=== PATIENT | female | born 1985 | race Caucasian/White ===

== ENCOUNTER → 2018-01-03 11:27 | Outpatient (CLI) | payer BC, SELFPAY ==
[2018-01-03 12:24] LABS: Hemoglobin 12.6 g/dl (12.0-15.0); Mean Corp Hgb Conc 32.3 g/gl (32-36); Mean Corpuscular Hgb 29.2 pg (27.0-32.0); Mean Corpuscular Volume 90.5 fL (81-99); Mean Platelet Vol. 9.1 fl (6.2-12.0); Platelet Count 317 K/mm3 (150-450); RBC Distribution Width SD 40.1 fl (35.1-43.9); Red Blood Count 4.31 M/mm3 (4.2-5.4); White Blood Count 4.7 K/mm3 (4.4-11.0)
[2018-01-03 12:40] LABS: Scan Indicated on CBC? Y/N NO
[2018-01-03 12:50] LABS: Hemoglobin A1c 5.3 % (4.2-6.3)
[2018-01-03 12:53] LABS: Estradiol 54.5 pg/mL; Free T3 2.8 pg/mL (2.18-3.98); T4 Free Direct 0.74 ng/dL (0.76-1.46); Thyroid Stim Hormone (TSH) 1.15 uIU/mL (0.358-3.74)
[2018-01-04 10:38] LABS: Progesterone Level 0.33 ng/mL (See Comment)
[2018-01-07 13:56] LABS: HPV Reflexed? NOT INDICATED
== END ==
PROVIDERS: Visit Provider Obstetrics & Gynecology
DX: R53.83 Other fatigue (principal); Z12.4 Encounter for screening for malignant neoplasm of cervix
CPT/HCPCS: 82533; 82627; 82670; 83036; 84144; 84403; 84439; 84443; 84481; 85027; 88175; 82626; G0145

== ENCOUNTER → 2018-03-23 08:59 | Outpatient (CLI) | payer BC, SELFPAY ==
--- NOTE | 2018-03-23 09:01 | US_ITS ---
STUDY: ABDOMINAL ULTRASOUND - RIGHT UPPER QUADRANT REASON FOR VISIT: Female, 32 years old. Epigastric pain TECHNIQUE: Ultrasound evaluation of the right upper quadrant was performed with real-time and static fernandez-scale imaging. TECHNICAL QUALITY: Adequate. COMPARISON: None. FINDINGS: Liver: The liver measures 17 cm. There is normal echogenicity of the liver. There is mild intrahepatic ductal dilatation. There is hepatic color flow. The direction of portal flow is hepatopetal. There is a subtle echogenic structure within the liver which may represent artifact versus a possible small hemangioma measuring 4.7 mm. Gallbladder: Normal distended gallbladder. The gallbladder wall measures 3 mm. There is a negative sonographic Evangelista's sign. There is no pericholecystic fluid. There are multiple echogenic structures within the gallbladder, consistent with multiple gallstones. These may measure up to 1.7 cm. There is a large stone in the neck of the gallbladder measuring 9.4 mm. Common Bile Duct (C.B.D.): The common bile duct measures 5 mm. Just at the edge of the common duct there is a suggestion of possible stone in or near the common duct. Pancreas: Normal size of the head, body and tail of the pancreas. There is normal echogenicity of the pancreas. There is no demonstrated pancreatic mass or cyst. Right Kidney: Normal size of the right kidney. The right kidney measures 10.2 x 5.2 x 4.8 cm. Normal renal cortex. The right cortex measures cm. There is no demonstrated renal mass or cyst. There is no right hydronephrosis. US/Abdomen Limited IMPRESSION: There are numerous gallstones present. There is wall thickening and a distended common duct for patient's age measuring 5 mm. There are stones close to the common duct and in the neck of the gallbladder. Although the sonographic Evangelista sign is described as negative findings are suggestive of at least chronic cholecystitis. Recommend consideration for short-term interval follow-up study such as HIDA scan. The kidneys of normal size but shows vertical thinning. Recommend correlation with renal laboratory values. Possible 4.7 mm hemangioma within the liver versus artifact. Electronically Signed: Jaki Ni MD at 12:21 EDT Tel , Service support ,
== END ==
PROVIDERS: Family Provider Family Medicine; PCP Family Medicine; Visit Provider Family Medicine
DX: R10.11 Right upper quadrant pain (principal)
CPT/HCPCS: 76705

== ENCOUNTER → 2018-03-27 09:59 | Outpatient (CLI) | payer BC, SELFPAY ==
[2018-03-27 10:45] LABS: AST(SGOT) 16 U/L (15-37); Alanine Aminotransfer ALT/SGPT 23 U/L (13-56); Albumin, Serum 4.1 g/dL (3.2-5.0); Alkaline Phosphatase 75 U/L (45-117); Bilirubin, Direct 0.09 mg/dL (0.00-0.30); Globulin 3.6 g/dL (2.2-4.2); Lipase 174 U/L (73-393); Protein, Total 7.7 g/dL (6.4-8.2)
== END ==
PROVIDERS: Family Provider Family Medicine; PCP Family Medicine; Visit Provider Surgery
DX: K80.20 Calculus of gallbladder without cholecystitis without obstruction (principal)
CPT/HCPCS: 36415; 80076; 83690

== ENCOUNTER 2018-08-02 07:17 | Day surgery (SDC) | payer BC, SELFPAY ==
[2018-08-02] VITALS (8 sets, daily range): BP systolic 120–151; BP diastolic 65–112; PULSE 45–60; RESP 16; TEMP 36.2–36.9; O2SAT 95–100; BMI 29.9
--- NOTE | 2018-08-02 | GALL_PTH ---
PATIENT: DARRICK MONTERROSO [place] [facility] [id number] AGE/SX: 33/F ROOM: RE08/02/[address]: Dr. Fareed Cali MD : [id number] BED: DIS: 08/02/2018 SPEC #: [id number] RECD: 08/02/18 13:59 STATUS: MAURO ODALYS #: [id number] ANTONINA: 08/02/18 00:[address]: Fareed Cali DEPT: SURGICAL PATHOLOGY RECD BY: [place] ENTERED: 08/02/18 13:59 SP TYPE: [place] SALAZAR DR: Dr. Heydi Galicia MD Tissues: Gallbladder, NOS Procedures: Surgery Specimen Level III HEADER OPERATION: Laparoscopic cholecystectomy with IOC PRE-OP DIAGNOSIS: Calculus of gallbladder with chronic cholecystitis without obstruction TISSUE SUBMITTED: Gallbladder MICROSCOPIC DIAGNOSIS Gallbladder: Chronic cholecystitis and cholelithiasis. A benign pericystic lymph node with reactive changes. SJ:urvashi 08/05/18 MICROSCOPIC DESCRIPTION Slides are reviewed. GROSS DESCRIPTION Received is one container labeled with the patient's name and designated gallbladder. The specimen consists of a gallbladder measuring 8.5 cm in length and up to 2.5 cm in diameter. The external surface is pink-peter, smooth and glistening for the most part. Focally it is granular, hemorrhagic and contains cautery artifact. The gallbladder contains green-yellow mucoid bile and multiple multifaceted greenish stones measuring in aggregate 4 x 3.5 x 2 cm and 0.5 to 1.5 cm in greatest dimension. The mucosa is bile-stained and without any mass lesions. The gallbladder wall measures up to 0.2 cm in thickness. Also present close to the cystic duct is an ovoid piece of peter soft tissue consistent with a possible lymph node measuring 0.5 cm in greatest dimension. [employer] Developer sections from the gallbladder wall, cystic duct and entire possible lymph node are submitted in one cassette. / JAH:urvashi 08/02/18 TC:3 CPT: 59313
--- NOTE | 2018-08-02 07:32 | EKG12_ITS ---
Test Reason : PRE-OP Blood Pressure : / mmHG Vent. Rate : 058 BPM Atrial Rate : 058 BPM P-R Int : 142 ms QRS Dur : 096 ms QT Int : 406 ms P-R-T Axes : 052 045 051 degrees QTc Int : 398 ms Sinus bradycardia Otherwise normal ECG No previous ECGs available Confirmed by KEYONNA MENON, AMY ([id number]), video editor SAMUEL PERRY ([id number]) on 08/09/2018 3:14:19 PM Referred By: Fareed Cali Confirmed By:AMY NEWBY MD
[2018-08-02 07:46] LABS: Internal QC Validated? YES +Cl - CLEAR BKGD; Pregnancy, Urine Negative Negative
[2018-08-02 07:56] LABS: Hematocrit 39.1 % (37-47); Hemoglobin 13.3 g/dl (12.0-15.0); Mean Corpuscular Hgb 30.4 pg (27.0-32.0); Mean Corpuscular Volume 89.5 fL (81-99); Mean Platelet Vol. 8.9 fl (6.2-12.0); Platelet Count 344 K/mm3 (150-450); RBC Distribution Width SD 38.8 fl (35.1-43.9); Red Blood Count 4.37 M/mm3 (4.2-5.4); White Blood Count 5.1 K/mm3 (4.4-11.0)
[2018-08-02 07:57] LABS: Scan Indicated on CBC? Y/N NO
[2018-08-02 08:08] LABS: Anion Gap 9 (5-15); BUN 12 mg/dL (7-18); Calcium,Total 8.7 mg/dL (8.5-10.1); Chloride 106 mmol/L (98-107); EST Glomerular Filtration Rate 68 mL/min (>60); Est Glom Filt Rate - Afr Amer 82 mL/min (>60); Estimated Creatinine Clearance 66.19 ml/min; Glucose 94 mg/dL (74-106); Potassium 3.8 mmol/L (3.5-5.1); Sodium Level 140 mmol/L (136-145)
--- NOTE | 2018-08-02 09:12 | DCINST_ITS ---
Discharge Diet: Light diet - advance as tolerated - if you have questions about your diet instructions, please talk to you doctor. Discharge Activity: May Not Drive - for 1 week or while taking narcotic pain medicine. May shower in (days): 1 Lifting Restrictions: 10 pounds Call your doctor if your incision/area has: Continuous Slow Oozing, Sudden Increased Bleeding, Increased Pain/ Swelling, Increased Redness, Foul Smelling Discharge Call your doctor if you observe: Fever of 101 or Higher Suture Line Care: Avoid Pulling/Pushing, Avoid Pinching/Bending Additional Dressing/Incision Instructions:: Change or remove dressing in 4 days. Leave steri-strips in place for 1 week. Allergies/Adverse Reactions: Allergies No Known Allergies Allergy (Verified 08/01/18 10:33) Medications to take at Discharge omeprazole 40 mg capsule,delayed release 40 mg PO QDAY #30 cap 03/27/18 Levonorgestrel [Mirena] 1 ea IY DAILY 07/26/18 Hydrocodone Bitart/Apap 5-325 [[place] 5MG-325MG] 1 tablet PO Q6H PRN PRN 3 Days # 8 tablet 08/02/18 The following prescriptions were given: Hydrocodone Bitart/Apap 5-325 [[place] 5MG-325MG] 1 tablet PO Q6H PRN PRN 3 Days # 8 tablet PRN Reason: Pain Primary Care Physician: Heydi Galicia MD [Primary Care Provider] - Test Results: Test results from this visit will be discussed in further detail at your follow- up appointment, if applicable. Please Follow Up With: Fareed Cali MD - [phone] When: Call to make an appointment to be seen in about 10 days.
--- NOTE | 2018-08-02 09:20 | RAD_ITS ---
STUDY: INTRAOPERATIVE CHOLANGIOGRAM. REASON FOR EXAM: Female, 33 years old. Laparoscopic cholecystectomy. FLUOROSCOPY TIME (if supplied): (0:14) minutes/seconds. Intraoperative cine loop was obtained. TECHNIQUE: An intraoperative cholangiogram was performed by the surgeon. Imaging was submitted. COMPARISON: None. FINDINGS: The intrahepatic biliary ducts are unremarkable. The common bile duct is not dilated. No intraluminal filling defect is seen. There is free flow of contrast into the duodenum. RAD/Cholangiogram/ O R,Initial IMPRESSION: Unremarkable intraoperative cholangiogram. Electronically Signed: Edward Dobson MD at 14:04 EDT Tel [phone], Service support ,
[2018-08-02] MEDS: Cefazolin 2 GM in 0.9% Normal Saline 100 ML IV (09:24)
--- NOTE | 2018-08-02 10:21 | PCM.OPRPT ---
Problem List (1) Cholelithiasis with chronic cholecystitis Status: Acute Report of Operation Date of Procedure: 08/02/18 Pre-Operative Diagnosis: Chronic cholecystitis cholelithiasis Post-Operative Diagnosis: Same Surgery/Procedure Performed:: Laparoscopic cholecystectomy with cholangiography Description of Surgical Findings:: Timeout informed consent was obtained. 33-year-old female was taken out from placement table underwent general endotracheal intubation anesthesia. Ancef 2 g given intravenously preoperatively. The abdomen was sterilely prepped draped. 0.5% Marcaine was used as a local anesthetic. Throughout the procedure total 30 cc was used. Skin sites were pre-anesthetized. A vertical incision was made at the site of the umbilicus. Holding sutures of 0 Vicryl placed. Varies needle inserted. Saline drop test performed. The abdomen was insufflated CO2 to pressure of 10 ventricular pressure. Laquita trocar inserted. 10 lap scope inserted. No evidence any trocar injuries. There is evidence of adhesions of omentum to the infraumbilical midline but the trocar was separate from this. Remainder of the superficial structures appear to be unremarkable. Upon elevating the gallbladder was evidence of a stone within the neck and induration consistent with active chronic inflammation. The mesentery of the gallbladder was incised hemostasis obtained with Hem-o-irais clips carefully and tediously the hepatocystic angle was dissected free the cystic artery was nicely identified Hem-o-irais clip proximally prior to transecting it for the gallbladder peritoneum was secured with Hem-o-irais clips circumferential control was obtained of the cystic duct. A Hem-o-irais clip was placed on the cystic duct and through a 14-gauge Angiocath and cholangiogram catheter was inserted a small incision was made in the cystic duct angiogram secured. Fluoroscopically controlled cholangiograms were obtained demonstrating normal ductal anatomy and free flow into the small bowel. Client Gilbert catheter was removed and 2 large Hem-o-irais clips were placed on the cystic duct stump prior to transecting it. The gallbladder was dissected free from the liver bed. Further hemostasis obtained with Hem-o-irais clips were indicated. Gallbladder was dissected free with electrocautery. Hemostasis nicely intact. The gallbladder was placed in retrieval bag. There is no stones spillage. The right upper quadrant was irrigated and aspirated free of excess fluid. Was noted be nicely hemostatic. The gallbladder was exited the umbilicus slight fascial enlargement was required. The remaining trochars removed under visualization. The abdomen was allowed to deflate of the CO2. The fascia at the umbilicus approximated up to 0 Vicryl figure 8 suture. Skin edges proximate interrupted 4 Monocryl subdermal stitches. Steri-Strips and Telfa and OpSite dressings were applied. Sponge and instrument and needle counts were reported the surgeon be correct. Blood loss was minimal. Specimens gallbladder. Drains none. Blood loss minimal. Fareed Cali M.D., F.A.C.S. Type of Anesthesia:: General Anesthesiologist: Dimas Walter
[2018-08-02] MEDS: Bupivacaine Mpf 0.5% 30 ML VIAL (10:27)
[2018-08-02] MEDS: HYDROcodone Bitartrate/Apap 5/325 Tablet PO (12:29)
== END 2018-08-02 13:00 | disposition home or self-care (01) ==
LOC: SDC 07:21 → AC 07:22
PROVIDERS: Anesthesiology; Family Provider Family Medicine; PCP Family Medicine; Visit Provider Surgery
PROC: (CPT 47610; principal; 2018-08-02 09:00)
DX: K80.10 Calculus of gallbladder with chronic cholecystitis without obstruction (principal)
CPT/HCPCS: 00790; 47563; 36415; 74300; 76000; 80048; 81025; 85027; 88304; 93005; J7120; J2405

== ENCOUNTER → 2019-08-05 11:29 | Outpatient (CLI) | payer BC, SELFPAY ==
[2019-08-05 15:49] LABS: Free T3 2.8 pg/mL (2.18-3.98)
== END ==
PROVIDERS: Family Provider Family Medicine; PCP Family Medicine; Visit Provider Family Medicine
DX: F41.8 Other specified anxiety disorders (principal)
CPT/HCPCS: 36415; 84439; 84443; 84481

== ENCOUNTER → 2019-09-11 09:52 | Outpatient (CLI) | payer BC, SELFPAY ==
[2019-09-15 15:48] LABS: DHEA Sulfate 244.7 ug/dL (84.8-378.0)
[2019-09-15 16:22] LABS: Estrogen, Total, Serum 169 pg/mL (.); Sex Hormone-binding Globulin 34.4 nmol/L (24.6-122.0)
== END ==
PROVIDERS: Family Provider Family Medicine; PCP Family Medicine; Referring Provider Obstetrics & Gynecology; Visit Provider Obstetrics & Gynecology
DX: R68.82 Decreased libido (principal)
CPT/HCPCS: 36415; 82533; 82627; 82672; 84270; 84403; 82626

== ENCOUNTER → 2019-09-19 15:27 | Outpatient (CLI) | payer BC, SELFPAY ==
[2019-09-19 16:48] LABS: Estradiol 40.8 pg/mL
== END ==
PROVIDERS: Family Provider Family Medicine; PCP Family Medicine; Referring Provider Obstetrics & Gynecology; Visit Provider Obstetrics & Gynecology
DX: R68.82 Decreased libido (principal)
CPT/HCPCS: 36415; 82670

== ENCOUNTER → 2020-11-10 16:24 | Outpatient (CLI) | payer BC, SELFPAY ==
[2018-08-02 07:44] VITALS: BMI 29.9
[2020-11-14 03:06] LABS: Chlamydia By Nucleic Acid AMP Negative (Negative)
[2020-11-14 14:45] LABS: Gonococcus By Nucleic Acid AMP Negative (Negative)
[2020-11-16 13:20] LABS: HPV Reflexed? NOT INDICATED
== END ==
PROVIDERS: PCP Family Medicine; Visit Provider Obstetrics & Gynecology
DX: Z12.4 Encounter for screening for malignant neoplasm of cervix (principal); Z11.3 Encounter for screening for infections with a predominantly sexual mode of transmission
CPT/HCPCS: 87491; 87591; 88175; G0145

== ENCOUNTER → 2022-05-11 | Outpatient (CLI) | payer BC, SELFPAY ==
[2022-05-11 12:40] LABS: Absolute Lymphocyte Count 1.89 X10^3/uL (0.83-4.51); Absolute Neutrophil Count 2.3 X10^3/uL (2.0-7.7); Basophil# 0.02 X10^3/uL; Basophil% 0.4 % (0-1); Eosinophil# 0.06 X10^3/uL; Eosinophils% 1.3 % (0-5); Hematocrit 38.3 % (37-47); Hemoglobin 12.5 g/dL (12.0-15.0); Lymphocyte # 1.89 X10^3/ul (0.83-4.51); Lymphocyte % 39.5 % (19-41); Mean Corp Hgb Conc 32.6 g/dL (32-36); Mean Corpuscular Hgb 30.5 pg (27.0-32.0); Mean Corpuscular Volume 93.4 fL (81-99); Mean Platelet Vol. 9.5 fl (6.2-12.0); Monocyte# 0.49 X10^3/uL; Monocyte% 10.2 % (0-10); NRBC Flagged by Analyzer 0 % (0-5); Neutrophil # 2.32 X10^3/uL (2.7-7.7); Neutrophil % 48.4 % (47-70); Platelet Count 341 K/mm3 (150-450); RBC Distribution Width CV 12.1 % (11.6-14.6); RBC Distribution Width SD 41.9 fl (35.1-43.9); White Blood Count 4.8 K/mm3 (4.4-11.0)
[2022-05-11 13:23] LABS: Vitamin B12 340 pg/mL (211-911)
[2022-05-11 13:30] LABS: Thyroid Stim Hormone (TSH) 0.53 uIU/mL (0.358-3.74)
== END | disposition home or self-care (01) ==
PROVIDERS: PCP Family Medicine; Referring Provider Family Medicine; Visit Provider Family Medicine
DX: R53.83 Other fatigue (principal)
CPT/HCPCS: 36415; 82607; 84443; 85025

== ENCOUNTER → 2023-03-22 | Outpatient (CLI) | payer BC, SELFPAY ==
[2023-03-23 15:08] LABS: Endomysial Antibody IgA Negative (Negative); Immunoglobulin A 143 mg/dL (87-352); t-Transglutaminase IgA <2 U/mL (0-3)
== END | disposition home or self-care (01) ==
LOC: BFHLAB 09:57
PROVIDERS: PCP Family Medicine; Referring Provider Family Medicine; Visit Provider Family Medicine
DX: R10.13 Epigastric pain (principal); R63.4 Abnormal weight loss
CPT/HCPCS: 36415; 82784; 83516; 86255

== ENCOUNTER → 2024-06-10 | Outpatient (CLI) | payer BC, SELFPAY ==
[2024-06-10 12:44] LABS: CRP < 2.90 mg/L (0.0-3.0)
[2024-06-10 12:53] LABS: Erythrocyte Sedimentation Rate 1 mm/hr (0-30)
[2024-06-10 12:54] LABS: Absolute Lymphocyte Count 1.68 X10^3/uL (0.83-4.51); Absolute Neutrophil Count 2.7 X10^3/uL (2.0-7.7); Basophil# 0.02 X10^3/uL; Basophil% 0.4 % (0-1); Eosinophil# 0.06 X10^3/uL; Eosinophils% 1.2 % (0-5); Hematocrit 39.7 % (37-47); Hemoglobin 13.3 g/dL (12.0-15.0); Lymphocyte # 1.68 X10^3/ul (0.83-4.51); Mean Corp Hgb Conc 33.5 g/dL (32-36); Mean Corpuscular Hgb 30.5 pg (27.0-32.0); Mean Corpuscular Volume 91.1 fL (81-99); Mean Platelet Vol. 9.1 fl (6.2-12.0); Monocyte# 0.45 X10^3/uL; Monocyte% 9.1 % (0-10); NRBC Flagged by Analyzer 0 % (0-5); Neutrophil # 2.72 X10^3/uL (2.7-7.7); Neutrophil % 55.1 % (47-70); Platelet Count 357 K/mm3 (150-450); RBC Distribution Width CV 11.9 % (11.6-14.6); Red Blood Count 4.36 M/mm3 (4.2-5.4); White Blood Count 4.9 K/mm3 (4.4-11.0)
== END | disposition home or self-care (01) ==
LOC: BFHLAB 10:31
PROVIDERS: PCP Nurse Practitioner Family; Referring Provider Nurse Practitioner Family; Visit Provider Nurse Practitioner Family
DX: R19.7 Diarrhea, unspecified (principal); R14.0 Abdominal distension (gaseous)
CPT/HCPCS: 36415; 85025; 85652; 86140

== ENCOUNTER → 2024-06-11 | Outpatient (CLI) | payer BC, SELFPAY ==
[2024-06-17 21:07] LABS: Calprotectin, Stool 6 ug/g (0-120)
== END | disposition home or self-care (01) ==
LOC: LABSPEC 14:18
PROVIDERS: PCP Nurse Practitioner Family; Referring Provider Nurse Practitioner Family; Visit Provider Nurse Practitioner Family
DX: R19.7 Diarrhea, unspecified (principal); R14.0 Abdominal distension (gaseous)
CPT/HCPCS: 83630; 83993; 87177; 87209; 87493; 87506

== ENCOUNTER → 2024-08-29 | Outpatient (CLI) | payer BC, SELFPAY ==
--- NOTE | 2024-08-29 14:59 | CT_ITS ---
STUDY: CT Abdomen And Pelvis W/ Contrast Injection 08/31/2024 3:26 PM REASON FOR EXAM: Female, 39 years old. Bloating LEFT LOWER QUADRANT PAIN TECHNIQUE: Transaxial images were obtained with oral contrast, and IV Readi-CAT and amp; 100mL Isovue-370 intravenous contrast. Individualized dose optimization techniques were used for this CT. COMPARISON: None FINDINGS: The visualized lung bases are unremarkable. The visualized portions of the heart are within normal limits. Unremarkable liver. There is non-visualization of the gallbladder, which may be secondary to either contraction or a prior cholecystectomy. Unremarkable spleen. Unremarkable pancreas. Unremarkable bilateral adrenal glands. No acute findings of the right kidney. No acute findings of the left kidney. Unremarkable visualized stomach. Unremarkable small intestine. There is wall thickening of the descending and rectosigmoid colon. There is also questionable inflammation around the colon. This can suggest a colitis. This can also suggest incomplete distension of the colon. The appendix is visualized and appears unremarkable. There are no acute findings of the abdominal aorta. Unremarkable inferior vena cava. Subcentimeter mesenteric lymph nodes. Unremarkable urinary bladder. Normal visualized uterus. IUD in place. It is in good position. Unremarkable abdominal wall. Unremarkable osseous structures. CT/Abdomen/Pelvis WITH Contrast IMPRESSION: (NOT LISTED IN ORDER OF SIGNIFICANCE) There are findings suggesting a mild colitis of the descending and rectosigmoid colon. Other findings as above. Electronically Signed: Eleno Ludwig MD at 15:29 EDT ,
[2024-08-29 15:33] LABS: CREATININE FINGERSTICK < 1.0 mg/dL (0.55-1.02); EGFR FINGERSTICK > 60.0000 mL/min (>60)
== END | disposition home or self-care (01) ==
PROVIDERS: PCP Family Medicine; Referring Provider Family Medicine; Visit Provider Family Medicine
DX: R10.32 Left lower quadrant pain (principal)
CPT/HCPCS: 74177; Q9967

== ENCOUNTER 2024-09-13 11:37 | Emergency (ER) | payer BC, SELFPAY ==
[2024-09-13 11:37] VITALS: BP 186/135; PULSE 96; RESP 28; TEMP 36.1; O2SAT 170
--- NOTE | 2024-09-13 12:03 | EX.ED.UPPERE ---
HPI History of Present Illness HPI Narrative: 39-year-old mfere-nesj-llyvahad female using a trimmer helper at home about an hour and a half ago and lacerated the index long and ring fingers of her left hand. Unsure of last tetanus. Denies other complaints. Chief Complaint: Laceration Informant: patient and spouse/S.O. Occured/Mechanism Mechanism/Context: Yes injury Onset/Context/Timing Onset: Today and Hours Context: Sudden Onset Timing: Continuous Quality of Pain: Sharp Current Severity: Moderate Maximum Severity: Moderate Associated Symptoms Associated Symptoms: Negative for Parasthesia, Weakness or Loss of Funtion Narrative Narrative: 39-year-old healthy female left hand laceration right index long ring finger from a trimmer helper about an hour and a half ago. Tetanus will need updated. Tetanus Immunization: Unknown Prior similar symptoms: No Recent Illness/Hospitalization: No PFSH PFSH Medical History GERD (gastroesophageal reflux disease) Colitis Cholelithiasis with chronic cholecystitis Anxiety Home Medications ?Medication ?Instructions ?Recorded ?Last Taken ?Type omeprazole 40 mg capsule,delayed 40 mg PO QDAY #30 caps 03/27/18 08/02/18 06:00 Rx release levonorgestrel 21 mcg/24 hr (up to 1 ea IY DAILY 07/26/18 Unknown History 8 years) 52 mg intrauterine device hydrocodone-acetaminophen 5-325mg 1 tab PO Q6H PRN PRN Pain 3 days 08/02/18 Unknown Rx 5mg-325mg ##8 bupropion HCl 150 mg 24 hr tablet, 150 mg PO QAM 09/03/24 Unknown History extended release famotidine 40 mg tablet 40 mg PO QDAY 09/03/24 Unknown History metoprolol tartrate 25 mg tablet 25 mg PO BID 09/03/24 Unknown History Allergy/AdvReac Type Severity Reaction Status Date / Time No Known Allergies Allergy Verified 09/13/24 11:37 Family History Grandmother Thyroid disorder Hypertension Mother Hypertension Father CVA (cerebral vascular accident) Surgical History History of cholecystectomy History of section History of dilatation and curettage Social History Smoking Status: Never smoker alcohol intake: current substance use type: does not use ROS ROS ED ROS Narrative Denies recent illness. Constitutional Constitutional ED: Denies chills or fever(s) Eyes Eyes: Denies blurry vision ENT ENT ED: Denies ear pain Cardiovascular Cardiovascular: Denies chest pain Respiratory/Chest Respiratory/Chest: Denies cough or dyspnea Gastrointestinal Gastrointestinal: Denies abdominal pain Genitourinary Genitourinary ED: Denies dysuria or hematuria Musculoskeletal Musculoskeletal: Denies back pain Integumentary Denies abscess Neurologic Neurologic: Denies headache(s) Psychiatric Psychiatric: Denies anxiety Endocrine Endocrinology: Denies cold intolerance Hematologic/Lymphatic Hematologic/Lymphatic: Denies easy bleeding Allergic/Immunologic Allergic/Immunologic ED: Denies mouth swelling or tongue swelling EXAM Physical Exam Narrative Exam Narrative: 39-year-old female complaining of pain. Vital signs stable afebrile. Blood pressure elevated due to her hand discomfort. at bedside. H EENT exam unremarkable atraumatic. Neck nontender. Lungs clear. Heart regular rhythm no murmur. Rate about 95. Chest wall ribs nontender. Abdomen soft. Moving all 4 extremities. Neurovascularly intact. Her left hand palmar aspect of the left index, ring and long finger has 4 total lacerations are irregular and jagged that will need to be repaired. She is able to completely extend her hand and completely flex her hand I think her flexor and extensor tendons are intact. She does have touch sensation and cap refill. There is no signs of infection. There is only mild bleeding. There is no gross bony deformity. Const Vital Signs: 09/13/24 11:37 Temperature 97 F L Temperature Source Temporal Pulse Rate 96 Respiratory Rate 28 H Blood Pressure 186/135 H Blood Pressure Mean 152 Pulse Ox 170 Oxygen Delivery Method Room Air Positive well nourished and well developed; Negative for obese, cachectic, contractures or unkempt General Appearance ED: well developed and NAD; Negative for unkempt, cachectic, contractures, cyanotic or diaphoretic Nutritional Appearance: Negative for cachectic or obese HEENT Reports moist mucous membranes normocephalic and atraumatic; Negative for trauma or tenderness Eyes PERRL and EOMs intact bilaterally Neck full ROM and supple General: Negative for tenderness Lymph Lymphatic: Negative for other Chest Wall inspection of chest normal and palpation of chest normal Chest: Negative for other Resp normal respiratory effort and clear to auscultation bilaterally Effort and Inspection: Negative for pain with movement Auscultation: Negative for rales, rhonchi or wheezes Cardio regular rate, regular rhythm, S1 normal heart sound, S2 normal heart sound and no murmurs Rate: Negative for bradycardia or tachycardic Rhythm: Negative for abnormal rhythm GI non-tender, non-distended and no masses Inspection: Negative for abdominal distention Palpation: soft; Negative for tender, guarding or rebound tenderness present Back/Spine no CVA tenderness Extremity normal to inspection and full ROM Extremity Narrative: Except left hand. Palmar aspect left, index left, ring and long finger all have irregular jagged lacerations from a hedge tremor. She has full flexion extension. Sensation appears to be intact. These are all need to be locally anesthetized washed out explored and closed. General Extremety ED: Negative for edema General Extremity: Negative for edema Neuro oriented x3, CN's II-XII intact bilaterally, moves all extremities, no focal motor deficits and no sensory deficits noted Sensorium / Orientation: alert, oriented to person, oriented to place and oriented to time; Negative for orientation impaired, lethargic or stuporous Motor Exam: strength 5/5 throughout Psych mental status grossly normal Appearance: Negative for unkempt Attitude: No agitated Mood & Affect: anxious and tearful; Negative for depressed Skin General Skin Exam: Negative for petechiae Lesions: no lesions Rashes: no rashes Trauma: laceration MDM MDM MDM Narrative Medical decision making narrative: 39-year-old female ngdvk-[id number] multiple lacerations to her left index, left ring and long fingers which are all need to be repaired. X-ray being obtained. Tetanus will be updated. All 3 fingers to be digitally blocked. Cleaned with Shur-Clens wash and irrigated with saline and closed. History & Record Review Discussion w/independent historian: Patient and Family Procedures Lacerations Left ring finger laceration repair:: Length: 1 in Depth: Sub Q Shape: Linear Prep: Shure-Clejoel Laceration repair: Digital block, Irrigated, Lidocaine, Nerve block and Skin sutures Number of Sutures/Nuris: 3 Suture Information: Ethilon and 4-0 Comment: Left ring finger laceration. Approximately an inch. Digital block. Cleaned with Shur-Clens washed with saline and irrigated. Explored. Closed using 3 simple interrupted 4-0 Ethilon sutures. Proper hemostasis wound closure was obtained. Left long finger laceration repair:: Length: 1 in Depth: Sub Q Shape: Linear Prep: Shure-Clens Laceration repair: Digital block, Irrigated, Lidocaine, Nerve block and Skin sutures Number of Sutures/[place]: 4 Suture Information: Ethilon, Simple and 4-0 Comment: Left long finger laceration about 1 inch. Digital block. Cleaned with Shur-Clens. Washed and irrigated with saline. Explored. Closed using 4 simple and updated three 4-0 Ethilon sutures. Proper usage and wound closure was obtained. Left index finger lacerations x 2 repaired.:: Length: 1 in Depth: Sub Q Shape: Linear Prep: Shure-Clens Laceration repair: Digital block, Irrigated, Lidocaine, Nerve block and Skin sutures Number of Sutures/[place]: 3 Suture Information: Ethilon, Simple and 4-0 Comment: Left index finger lacerations x 2. First 1 was 1 inch. Of the skin and subcu tissue. Digital block. Cleaned with Shur-Clens. Wash area with lidocaine. Close using 3, 4-0 Ethilon sutures. Proper hemostasis and closure obtained. Left index finger laceration #2:: Length: 3 in Depth: Sub Q Shape: Stellate Prep: Shure-Clens Laceration repair: Digital block, Irrigated, Lidocaine, Nerve block and Skin sutures Number of Sutures/Nuris: 5 Suture Information: Ethilon, Simple and 4-0 Comment: Left index finger laceration #2. 2+ inches in length. Stellate. Cleaned with Shur-Clens. Washed and irrigated with saline. Explored. Closed using 5 simple and ruptured 4-0 Ethilon sutures. Probably states his wound close obtained. Discharge Plan Triage Chief Complaint: Laceration ED Provider: Dean Prince Dx/Rx/DC Orders Clinical Impression: Finger laceration Instructions: ED Laceration, Hand: All Closures Prescriptions: No Action omeprazole 40 mg capsule,delayed release(DR/EC) 40 mg PO QDAY Qty: 30 2RF Rx Instructions: swallow whole; do not crush, chew, dissolve, cut, break famotidine 40 mg tablet 40 mg PO QDAY bupropion HCl 150 mg tablet extended release 24 hr 150 mg PO QAM metoprolol tartrate 25 mg tablet 25 mg PO BID levonorgestrel 1 EACH intrauterine device 1 ea IY DAILY hydrocodone-acetaminophen 1 TABLET tablet 1 tab PO Q6H PRN PRN (Reason: Pain) 3 Days Qty: 8 0RF Primary Care Provider: Heydi Galicia Referrals: Heydi Galicia MD [Primary Care Provider] - 10-14 Days suture removal Activity Restrictions/Additional Instructions: Ice and elevate your hand 30 minutes at a time 4-5 times a day the next 3 days to decrease pain and swelling. Tylenol and Motrin for pain. Clean the hand thoroughly daily with soap and water. Apply antibiotic ointment. Dry thoroughly. Do not allow this to soak in any dirty water. May get it wet in the shower but then dried off thoroughly. Watch for any signs of infection such as fever, redness, significant swelling or streaks. Or pus. If seen return. No rings or jewelry on that hand until the stitches are out and the swelling is gone. Print Language: Chinese Disposition Disposition: Home, Self Care
[2024-09-13] MEDS: HYDROcodone Bitartrate/Apap 5/325 Tablet PO (12:10)
[2024-09-13] MEDS: Lidocaine 1% (20 ml mdv) 20 ML Vial 40 ML INFILT ×2 (12:11→13:58)
[2024-09-13] MEDS: Diphth,Pertuss(Acell),Tet Vac 0.5 ML Vial IM (12:11)
--- NOTE | 2024-09-13 12:25 | RAD_ITS ---
INDICATION: trauma w/ lacerations EXAMINATION/TECHNIQUE: X-RAY - LEFT XR Hand Min 3 Views 3 VIEWS COMPARISON: No relevant prior comparison study available FINDINGS: SOFT TISSUES: No soft tissue swelling or gas. No radiopaque foreign body. BONES/JOINTS: No acute fracture or subluxation.. Normal alignment. Preservation of the joint space.. No sclerotic or destructive changes observed. RAD/Hand Min 3 Views IMPRESSION: No acute osseous injury. Electronically Signed: Christy Cunningham MD at 12:40 EDT ,
[2024-09-13 13:56] VITALS: BP 129/72; PULSE 66; RESP 18; TEMP 37.2; O2SAT 100
== END 2024-09-13 13:58 | disposition home or self-care (01) ==
PROVIDERS: Emergency Provider Emergency Medicine; PCP Family Medicine; Visit Provider Emergency Medicine
DX: S61.210A Laceration without foreign body of right index finger without damage to nail, initial encounter (principal); S61.214A Laceration without foreign body of right ring finger without damage to nail, initial encounter; S61.212A Laceration without foreign body of right middle finger without damage to nail, initial encounter; W29.3XXA Contact with powered garden and outdoor hand tools and machinery, initial encounter; Z23 Encounter for immunization; K21.9 Gastro-esophageal reflux disease without esophagitis; Z79.899 Other long term (current) drug therapy; F41.9 Anxiety disorder, unspecified; Z90.49 Acquired absence of other specified parts of digestive tract
CPT/HCPCS: 12005; 73130; 90471; 90715; 99283

== ENCOUNTER → 2024-09-18 | Outpatient (CLI) | payer BC, SELFPAY ==
[2024-09-18 10:53] LABS: Absolute Lymphocyte Count 1.96 X10^3/uL (0.83-4.51); Absolute Neutrophil Count 3.3 X10^3/uL (2.0-7.7); Basophil# 0.03 X10^3/uL; Basophil% 0.5 % (0-1); Eosinophil# 0.08 X10^3/uL; Eosinophils% 1.4 % (0-5); Hematocrit 36.6 % (37-47); Hemoglobin 12.1 g/dL (12.0-15.0); Lymphocyte # 1.96 X10^3/ul (0.83-4.51); Lymphocyte % 33.6 % (19-41); Mean Corp Hgb Conc 33.1 g/dL (32-36); Mean Corpuscular Hgb 30.6 pg (27.0-32.0); Mean Corpuscular Volume 92.7 fL (81-99); Mean Platelet Vol. 8.9 fl (6.2-12.0); Monocyte# 0.41 X10^3/uL; NRBC Flagged by Analyzer 0 % (0-5); Neutrophil # 3.32 X10^3/uL (2.7-7.7); Platelet Count 325 K/mm3 (150-450); RBC Distribution Width CV 12.3 % (11.6-14.6); RBC Distribution Width SD 42.4 fl (35.1-43.9); Red Blood Count 3.95 M/mm3 (4.2-5.4); White Blood Count 5.8 K/mm3 (4.4-11.0)
[2024-09-18 10:56] LABS: Erythrocyte Sedimentation Rate 1 mm/hr (0-30)
[2024-09-18 11:35] LABS: ALB/GLOB Ratio 1.2 RATIO (0.9-2.4); AST(SGOT) 16 U/L (15-37); Alanine Aminotransfer ALT/SGPT 42 U/L (13-56); Alkaline Phosphatase 85 U/L (45-117); Anion Gap 3 (5-15); BUN 15 mg/dL (7-18); BUN/Creat Ratio 15.7 RATIO (10-20); CRP < 2.90 mg/L (0.0-3.0); Calcium,Total 8.8 mg/dL (8.5-10.1); Chloride 108 mmol/L (98-107); Creatinine, Serum 0.96 mg/dL (0.55-1.02); EST Glomerular Filtration Rate 69 mL/min (>60); Est Glom Filt Rate - Afr Amer 83 mL/min (>60); Free T3 2.9 pg/mL (2.18-3.98); Globulin 3.4 g/dL (2.2-4.2); Glucose 89 mg/dL (74-106); LDH 154 U/L (84-246); Potassium 3.8 mmol/L (3.5-5.1); Protein, Total 7.4 g/dL (6.4-8.2); Sodium Level 138 mmol/L (136-145); T4 Free Direct 0.78 ng/dL (0.76-1.46); Thyroid Stim Hormone (TSH) 0.472 uIU/mL (0.358-3.740)
[2024-09-25 05:07] LABS: ACCA 0 units (0-90); ALCA 8 units (0-60); AMCA 65 units (0-100); Alpha-1-Globulins 0.3 g/dL (0.0-0.4); Alpha-2-Globulins 0.7 g/dL (0.4-1.0); Cytoplasmic Ab (C-ANCA) <1:20 titer (Neg:<1:20); Endomysial Antibody IgA Negative (Negative); Immunoglobulin A 149 mg/dL (87-352); Immunoglobulin E 5 IU/mL (6-495); Immunoglobulin G 1015 mg/dL (586-1602); Immunoglobulin M 89 mg/dL (26-217); PROEL- TOTAL PROTEIN 7.1 g/dL (6.0-8.5); Perinuclear Ab (P-ANCA) <1:20 titer (Neg:<1:20); gASCA 57 units (0-50); t-Transglutaminase IgA <2 U/mL (0-3)
[2024-09-27 01:07] LABS: Anti-Centromere B Ab <0.2 AI (0.0-0.9); Anti-Chromatin <0.2 AI (0.0-0.9); Anti-Jo <0.2 AI (0.0-0.9); Anti-Scleroderma-70 AB <0.2 AI (0.0-0.9); Anti-dsDNA Ab <1 IU/mL (0-9); Beef <0.10 kU/L (Class 0); Chocolate <0.10 kU/L (Class 0); Codfish <0.10 kU/L (Class 0); Corn <0.10 kU/L (Class 0); Egg, Whole <0.10 kU/L (Class 0); Milk (Cow) <0.10 kU/L (Class 0); Mussels <0.10 kU/L (Class 0); Peanut <0.10 kU/L (Class 0); Pork <0.10 kU/L (Class 0); RNP Ab <0.2 AI (0.0-0.9); SJOGREN'S Anti-SS-A test < 0.2 AI (0.0-0.9); SJOGREN'S Anti-SS-B test < 0.2 AI (0.0-0.9); Salmon <0.10 kU/L (Class 0); Shrimp <0.10 kU/L (Class 0); Smith Ab <0.2 AI (0.0-0.9); Soybean <0.10 kU/L (Class 0); Tuna <0.10 kU/L (Class 0); Wheat <0.10 kU/L (Class 0)
== END | disposition home or self-care (01) ==
LOC: LAB 09:58
PROVIDERS: PCP Family Medicine; Referring Provider Student in an Organized Health Care Education/Training Program; Visit Provider Student in an Organized Health Care Education/Training Program
DX: K21.9 Gastro-esophageal reflux disease without esophagitis (principal); K52.9 Noninfective gastroenteritis and colitis, unspecified
CPT/HCPCS: 36415; 80053; 82784; 82785; 83516; 83615; 84165; 84439; 84443; 84481; 85025; 85652; 86003; 86005; 86036; 86037; 86140; 86225; 86235; 86255; 86334; 86671; 87493

== ENCOUNTER 2024-09-25 08:27 | Day surgery (SDC) | payer BC, SELFPAY ==
--- NOTE | 2024-09-24 09:05 | EKG12_ITS ---
Test Reason : PREOP Blood Pressure : */* mmHG Vent. Rate : 62 BPM Atrial Rate : 62 BPM P-R Int : 130 ms QRS Dur : 90 ms QT Int : 396 ms P-R-T Axes : 54 50 46 degrees QTcB Int : 401 ms Normal sinus rhythm Normal ECG Confirmed by KEYONNA MENON, AMY ([id number]), film and video editor CORIE ENGEL ([id number]) on 09/24/2024 2:10:52 PM Referred By: Fareed Smith Confirmed By: AMY NEWBY MD
[2024-09-25] VITALS (9 sets, daily range): BP systolic 113–152; BP diastolic 74–106; PULSE 62–146; RESP 16–18; TEMP 36.1–36.6; O2SAT 96–100; BMI 29.7
[2024-09-25] MEDS: Lactated Ringers 1,000 ML 15 ML IV (08:57)
--- NOTE | 2024-09-25 08:59 | PRE.ANES_ITS ---
ASA Classification* ASA Classification ASA Classification: 2 Assessment & Plan Anesthesia* Anesthesia Assessment Anesthesia Assessment: Discussed sedation and/or anesthesia options, risks, benefits, and alternatives with patient/parents/legal guardian/POA. Questions invited. The patient/parents/legal guardian/POA seems to understand and agrees to proceed with anesthesia plan. Reviewed the physical assessment, medical history, allergy history and patient home medications list prior to surgery/procedure/anesthetic and documented any changes. Performed airway and anesthesia risk assessments. Anesthesia Type Anesthesia Type: General Anesthesia Focused Assessment* Temperature: 97.9 F Pulse Rate: 69 Blood Pressure: 136/92 Respiratory Rate: 16 Pulse Ox: 100 Airway Assessment Mouth opens: >3 cm Mallampati Score: II Focused Labs Anesthesia Preop lab: CBC WBC 5.8 K/mm3 (4.4-11.0) 09/18/24 10:25 RBC 3.95 M/mm3 (4.2-5.4) L 09/18/24 10:25 Hgb 12.1 g/dL (12.0-15.0) 09/18/24 10:25 Hct 36.6 % (37-47) L 09/18/24 10:25 Plt Count 325 K/mm3 (150-450) 09/18/24 10:25 CHEMISTRY Potassium 3.8 mmol/L (3.5-5.1) 09/18/24 10:25 Sodium 138 mmol/L (136-145) 09/18/24 10:25 BUN 15 mg/dL (7-18) 09/18/24 10:25 Creatinine 0.96 mg/dL (0.55-1.02) 09/18/24 10:25 Glucose 89 mg/dL (74-106) 09/18/24 10:25 TSH 0.472 uIU/mL (0.358-3.740) 09/18/24 10:25 COAG Urine Test Negative Negative 08/02/18 07:30 Pre-Assessment Diagnosis/Proposed Procedure Planned Operative Procedure(s): LEFT INDEX FINGER EXPLORATION POSS NERVE OR TENDON REPAIR Anesthesia History 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 When Was Last Pacemaker Check QUESTION #4 FULL TEXT: You/Your Family Experience fever (hyperthermia) with Anesthesia Last Oral Intake Last Oral intake: Last Oral Intake NPO since 20:00 09/25/24 08:52 Meds taken in AM with sips of Yes 09/25/24 08:52 water? Meds patient instructed to WELLBUTRIN 09/25/24 08:52 take am of surgery PONV PONV - suture winder hand: PONV - suture winder hand Female Yes 09/23/24 08:34 HX of Motion Sickness No 09/23/24 08:34 HX of N/V After Surgery No 09/23/24 08:34 Non-Smoker Yes 09/23/24 08:34 Duration of Surgery greater Yes 09/23/24 08:34 than 60 minutes Number of Risk Factors 3 09/23/24 08:34 PONV Score Moderate Risk 09/23/24 08:34 Height & Weight Height & Weight: Anesthesia: Height & Weight Height 5 ft 3 in 09/25/24 08:52 Weight: 76 kg 09/25/24 08:52 Body Mass Index (BMI) 29.7 09/25/24 08:52 Respiratory Assessment Respiratory Assessment - suture winder hand: Respiratory Tract Infection Hx - suture winder hand Hx Respiratory Tract Infection No 09/23/24 08:34 STOP Sleep Apnea STOP Sleep Apnea - suture winder hand: STOP Sleep Apnea - suture winder hand Hx Hypertension Yes: NO MEDS FOR 3 WEEKS 09/23/24 08:34 Hx Sleep Apnea No 09/23/24 08:34 CPAP BIPAP Do you snore loudly (louder No 09/23/24 08:34 than talking or can be heard Do you often feel tired/ Yes 09/23/24 08:34 fatigued/ sleepy during daytime? Has anyone observed you stop No 09/23/24 08:34 breathing during sleep? STOP Results Positive 09/23/24 08:34 QUESTION #5 FULL TEXT : Do you snore loudly (louder than talking or can be heard through closed doors)? 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 Specify any problems Hx of Preganancy in last 3 No 09/23/24 08:34 Months Nurse Filling Out Transfusion DSCHRIBER 09/23/24 08:34 & Questions: Date: 09/23/24 09/23/24 08:34 Time: 08:36 09/23/24 08:34 Patient unable to answer at this time (ie. confused, unrespo /Reproduction History /Reproductive History - suture winder hand: /Reproductive Hx- suture winder hand Hx Now No 09/23/24 08:34 Gestational Age (in weeks): EDC: Hx Hx Para Hx Section SAB No 09/13/24 11:37 Active Medications Active Medications: Current Medications Generic Name Dose Route Start Last Admin Trade Name Freq PRN Reason Stop Dose Admin Cefazolin Sodium 2 gm/ N/A 20 mls @ 400 mls/hr 09/25/24 10:05 IV 09/25/24 10:07 PREOP ONE Lactated Ringer's 1,000 mls @ 15 mls/hr 09/25/24 08:45 09/25/24 08:57 IV 09/30/24 22:04 15 mls/hr .Q48H ERIKA Administration Protocol PFSH Medical History Depression Alcohol use Low iron Easy bruising Shortness of breath on exertion Non-smoker Palpitations GERD (gastroesophageal reflux disease) Colitis Anxiety Home Medications ?Medication ?Instructions ?Recorded ?Last Taken ?Type levonorgestrel 1 ea IY DAILY 09/14/18 Unknown History bupropion HCl 150 mg 24 hr tablet, 150 mg PO QAM 09/03/24 09/25/24 History extended release famotidine 40 mg tablet 40 mg PO QHS 09/03/24 09/24/24 History Allergy/AdvReac Type Severity Reaction Status Date / Time No Known Allergies Allergy Verified 09/25/24 08:46 Family History Grandmother Thyroid disorder Hypertension Mother Hypertension Father CVA (cerebral vascular accident) Surgical History History of cholecystectomy History of section History of dilatation and curettage Social History Smoking Status: Never smoker alcohol intake: current substance use type: does not use additional social history: pt denies vapes, denies marijuana use, denies edibles, denies aspirin use, uses ibuprofen, denies family history of blood clotting disorder. Review of Systems (Anesthesia) ROS Narrative System reviewed and no additional complaints, except as documented.
[2024-09-25 09:00] LABS: Internal QC Validated? YES +Cl - CLEAR BKGD
[2024-09-25 09:01] LABS: Pregnancy, Urine Negative Negative
--- NOTE | 2024-09-25 10:34 | HP.PCM.SX_ITS ---
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 She was seen by the [facility] [place] emergency department, washed out and sutured shut. The injuries occurred to the volar aspects of the left index, long, and ring fingers, and she is complaining of persistent numbness on the radial aspect of the left index finger. Per Dr. Prince's (emergency department) note, there is no concern for tendon laceration in the wound bed when he washed out and closed the wound. The patient reports that they do not have any personal or family history of bleeding or clotting disorders. 2 miscarriages. She is on oral levonorgestrel. Her Caprini score is therefore 3. Not a smoker Otherwise healthy RHD Current Encounter (DATE OF SURGERY H&P UPDATE): I saw and examined the patient this morning in pre-operative holding. We discussed risks and benefits of today's surgery and they would like to proceed. NO CHANGE in health history since last seen and evaluated. Ready to proceed with surgery. Reports persistent numbness of the radial border of the left index, and reports some tingling/numbness on the volar aspect of the long finger immediately adjacent to the laceration (albeit not at the finger tip or radial border distal to the zone of injury). [facility] Medical History Depression Alcohol use Low iron Easy bruising Shortness of breath on exertion Non-smoker Palpitations GERD (gastroesophageal reflux disease) Colitis Anxiety Home Medications ?Medication ?Instructions ?Recorded ?Last Taken ?Type levonorgestrel 1 ea IY DAILY 07/26/18 Unknown History bupropion HCl 150 mg 24 hr tablet, 150 mg PO QAM 09/03/24 09/25/24 History extended release famotidine 40 mg tablet 40 mg PO QHS 09/03/24 09/24/24 History Allergy/AdvReac Type Severity Reaction Status Date / Time No Known Allergies Allergy Verified 09/25/24 08:46 Family History Grandmother Thyroid disorder Hypertension Mother Hypertension Father CVA (cerebral vascular accident) Surgical History History of cholecystectomy History of section History of dilatation and curettage Social History Smoking Status: Never smoker alcohol intake: current substance use type: does not use additional social history: pt denies vapes, denies marijuana use, denies edibles, denies aspirin use, uses ibuprofen, denies family history of blood clotting disorder. Vital Signs Vital Signs Vital Signs: 09/25/24 08:52 09/25/24 08:52 09/25/24 08:59 Temperature 97.9 F 97.9 F Temperature Source Temporal Pulse Rate 69 69 Respiratory Rate 16 16 Respiratory Pattern Normal Blood Pressure 136/92 H 136/92 H Blood Pressure Mean 106 Blood Pressure Source Monitor Blood Pressure Position Semi-Fowlers Blood Pressure Location Left Arm Pulse Ox 100 100 Oxygen Delivery Method Room Air Weight Weight: 167 lb 8.821 oz Body Mass Index (BMI) 29.7 Physical Exam Narrative Inspection: Multilevel laceration of the left index finger. Volar lacerations on the long and ring fingers as well. Repairs are clean dry and intact with nylon sutures in place. No signs of infection No collateral ligament instability on any of the joints Motor: Able to bend and extend all MP, PIP, and DIP joints. No signs of tendon injuries at this time Sensory: 2 to 3 mm 2-point discrimination on the radial and ulnar radial aspects of the index long and ring fingers except for the radial aspect of the index finger which has 8 mm 2-point discrimination. With regards to the 10/10 test (comparing both sides), the radial aspect of index is 3/10, and the radial aspect of the long finger is 8/10. Vascular: Finger tips are warm and well perfused with <2 second capillary refill. Distal to the zone of injury on the left index finger radial side, I am unable to hear Doppler signal when I occlude the radial digital bundle proximal to the injury, which is further evidence for a radial sided digital nerve injury on the left index finger as the nerve is volar to the Artery. Results Lab / Micro Data Labs: Laboratory Results - last 24 hr 09/25/24 08:37: Urine Test Negative Assessment & Plan Assessment/Plan (1) Digital nerve laceration, finger: PLAN: I talked the patient extensively about the risks of surgery, including bleeding, infection, damage to surrounding structures, surgical site dehiscence and wound formation, need for wound care, need for repeat operations, failure to obtain the desired result (including neuroma or persistent numbness), poor scaring, DVT/PE, and the risks of anesthesia including . The benefits and alternatives of this surgery were also discussed. All of their questions were answered, and they agreed to proceed with surgery. We discussed risks, benefits, and alternatives to exploration of long finger, but since 2-point is the same as the other healthy fingers, and 10/10 test demonstrated 8/10 sensation compared to contralateral and no altered sensation on the finger tip, the patient elected to defer exploration of long finger. INTERVAL H&P PLAN, DATE OF SURGERY: We will proceed with surgery today (expl oration of LEFT INDEX FINGER for possible nerve repair, possible tendon repair).
[2024-09-25] MEDS: Cefazolin 2 GM in Syringe IV (10:40)
[2024-09-25] MEDS: Bupivacaine 0.25% 30 ML Vial (11:25)
--- NOTE | 2024-09-25 11:43 | PCM.POST.ANE ---
Anesthesia: Postop Eval I Current Vital Signs Temperature: 97.2 F Pulse Rate: 146 Blood Pressure: 150/95 Respiratory Rate: 16 Pulse Ox: 100 Oxygen Delivery Method: Room Air Assessment Airway patent: Yes Spontaneous unlabored respirations: Yes Mental status: Awake and Calm nausea: No Vomiting: No Anesthesia Complication: No Fluid Hydration Crystalloid volume administer (ml): 900 Total IV fluid infused: 900 Progress Note Anesthesia document: Postop Eval 1 completed: Yes
[2024-09-25] MEDS: oxyCODONE 5 MG Tablet PO (12:44)
--- NOTE | 2024-09-25 13:01 | SUR.PHASEII ---
unable to scan oxycodone in the room when given to pt- a box popped up saying- not safe and wouldn't take me to the finger scan option so had to full document
--- NOTE | 2024-09-25 14:34 | OP.PCM_ITS ---
Operative Report (Standard) Operative Information Surgery/Procedure Performed: 1) Exploration of left upper extremity penetrating trauma, left index finger (CPT 09334) 2) Simple repair of left index finger lacerations, 4 cm (CPT 21307) Surgeon: Fareed Smith Date of Procedure: 09/25/24 Procedure Start Time: 11:00 Procedure Stop Time: 11:28 Pre-Operative Diagnosis: Left index finger volar lacerations Post-Operative Diagnosis: Same Select all DRAINS/GRAFTS/IMPLANTS that apply: None Type of Anesthesia: General/Supplemental (5 cc of 0.25% Marcaine for a block at the completion of the case) Estimated Blood Loss: minimal Fluids Replaced: 200 cc LR Specimen collected: No Description of surgery: Indications: Kylee Kang is a 39-year-old female who had 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 She presented to my clinic with numbness on the radial aspect of her left index finger after the wounds were seen and evaluated in the emergency department and closed. I talked her about the risk benefits and alternatives of exploration and she agreed to proceed. Operative details: Patient was correctly notified in preoperative holding and taken back to the operating room where she was administered general anesthesia and prepped and draped in sterile fashion. A timeout was performed. There were 2 oblique lacerations on the volar surface of her proximal index finger. Under loupe magnification, these lacerations were connected radially with a small incision that was made with a 15 blade scalpel. Dissection was then carried out elevating essentially a Maria Alejandra flap off of the radial digital neurovascular bundle and off of the flexor tendon. There was no injury to the flexor sheath/flexor tendon. I then looked at the proximal and distal lacerations and the nerve beneath the lacerations. The nerve was completely intact and in continuity. I then brought in the microscope to further examine t he nerve closer, and nerve continuity was confirmed proximally and distally. The wound was irrigated with copious amounts normal saline and closed with interrupted 3-0 nylon sutures for a 4 cm simple closure. Xeroform Christina and Coban were applied. The patient was awakened and taken to the PACU in stable condition. Postoperative plan: Follow-up on Sunday, 29 September 2024, for a wound check of the index finger and removal of the long and ring finger sutures (leave index finger sutures in place). Follow-up with me in clinic on 07 October 2024 for wound check as well and suture removal from the index finger. Surgical Findings: Radial digital nerve found to be in continuity. Her numbness is therefore likely secondary to either some small branches being transected versus a neuropraxia from the blunt trauma. 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
--- NOTE | 2024-09-25 16:48 | POSTOPAN2_ITS ---
Anesthesia Postop Eval I Sum Postop Eval Completion status Anesthesia document: Postop Eval 1 completed: Yes Anesthesia Postop Eval I Summary Anesthesia Postop Eval I Summary: Anesthesia Postop Eval I: Assessment Summary Airway patent Yes 09/25/24 11:47 LIMITED RADIOLOGY [email or web address].[email or web address] Spontaneous unlabored Yes 09/25/24 11:47 LIMITED RADIOLOGY TECHNICIAN.[email or web address] respirations Mental status Awake,Calm 09/25/24 11:47 LIMITED RADIOLOGY TECHNICIAN.GDOTT nausea No 09/25/24 11:47 LIMITED RADIOLOGY TECHNICIAN.GDOTT Vomiting No 09/25/24 11:47 LIMITED RADIOLOGY TECHNICIAN.GDOTT Anesthesia Postop Eval I: Fluid Summary Crystalloid volume administer 900 09/25/24 11:47 LIMITED RADIOLOGY TECHNICIAN.GDOTT (ml) Colloids volume administered ( ml) Blood Product volume administered (ml) Total IV fluid infused 900 09/25/24 11:47 LIMITED RADIOLOGY TECHNICIAN.GDOTT Anesthesia Postop Eval I: Summary Notes Anesthesia Complication No 09/25/24 11:47 LIMITED RADIOLOGY TECHNICIAN.GDOTT Anesthesia Complication Comment: Post-operative progress note Anesthesia: Postop Eval II Evaluation Mental status: Awake Pain Level: 0 nausea: No Vomiting: No
--- NOTE | 2024-09-25 16:48 | PCM.POSTANE2 ---
Anesthesia Postop Eval I Sum Postop Eval Completion status Anesthesia document: Postop Eval 1 completed: Yes Anesthesia Postop Eval I Summary Anesthesia Postop Eval I Summary: Anesthesia Postop Eval I: Assessment Summary Airway patent Yes 09/25/24 11:47 MASTER [email or web address].[email or web address] Spontaneous unlabored Yes 09/25/24 11:47 MASTER [employer].GDOTT respirations Mental status Awake,Calm 09/25/24 11:47 MASTER [employer].GDOTT nausea No 09/25/24 11:47 MASTER [employer].GDOTT Vomiting No 09/25/24 11:47 MASTER GRE[employer]AKES.GDOTT Anesthesia Postop Eval I: Fluid Summary Crystalloid volume administer 900 09/25/24 11:47 MASTER [employer].GDOTT (ml) Colloids volume administered ( ml) Blood Product volume administered (ml) Total IV fluid infused 900 09/25/24 11:47 MASTER GREAT [employer]AKES.GDOTT Anesthesia Postop Eval I: Summary Notes Anesthesia Complication No 09/25/24 11:47 MASTER GREAT [employer]AKES.GDOTT Anesthesia Complication Comment: Post-operative progress note Anesthesia: Postop Eval II Evaluation Mental status: Awake Pain Level: 0 nausea: No Vomiting: No
== END 2024-09-25 13:20 | disposition home or self-care (01) ==
LOC: SDC 08:28 → AC 08:33
PROVIDERS: Anesthesiology; PCP Family Medicine; Referring Provider Surgery Plastic and Reconstructive Surgery; Visit Provider Surgery Plastic and Reconstructive Surgery
PROC: (CPT 20103; principal; 2024-09-25 09:50)
DX: S64.491A Injury of digital nerve of left index finger, initial encounter (principal); F32.A Depression, unspecified; F41.9 Anxiety disorder, unspecified; Z79.899 Other long term (current) drug therapy; X58.XXXA Exposure to other specified factors, initial encounter
CPT/HCPCS: 20103; 12002; 00400; 81025; 93005; J7120; J2405

== ENCOUNTER → 2024-11-07 | Outpatient (CLI) | payer BC, SELFPAY ==
--- NOTE | 2024-11-07 10:16 | MRI_ITS ---
EXAM: MR ABDOMEN AND PELVIS WITHOUT AND WITH INTRAVENOUS CONTRAST CLINICAL INDICATION: K52.9 - Noninfective gastroenteritis and colitis, unspecified TECHNIQUE: Multiplanar and multisequence MR images of the abdomen and pelvis without and with intravenous contrast. CONTRAST: 15 cc of Clariscan IV. COMPARISON: Pelvis 08/29/2024. FINDINGS: LOWER THORAX: Unremarkable. No pleural effusion. ABDOMEN: LIVER: Unremarkable. Normal morphology. No focal mass. GALLBLADDER AND BILE DUCTS: Cholecystectomy. No intra- or extrahepatic biliary ductal dilation. PANCREAS: Unremarkable. No focal cystic or solid mass. SPLEEN: Unremarkable. Normal size without focal cystic or solid mass. ADRENALS: Unremarkable. No nodules. KIDNEYS AND URETERS: Unremarkable. Normal renal size and position. No hydronephrosis. PELVIS: APPENDIX: No evidence of acute appendicitis. BLADDER: Unremarkable. OVARIES: Unremarkable as visualized. No mass or complex cyst. UTERUS/CERVIX: IUD within the endometrial cavity. ABDOMEN and PELVIS: INTRAPERITONEAL SPACE: Unremarkable. No ascites or other fluid collection. VASCULATURE: Unremarkable. Abdominal aorta is non-dilated. LYMPH NODES: No enlarged lymph nodes. MRI/Enterography Abd/Pel IMPRESSION: 1. No acute abdominal pelvic abnormality. 2. Cholecystectomy. Electronically Signed: Enrrique Soto MD at 22:51 EST ,
[2024-11-07 10:38] VITALS: BP 135/86; PULSE 81; RESP 18; O2SAT 97; BMI 29.5
[2024-11-07] MEDS: 0.9% Saline Lock 10 ML Syringe IV (10:48)
[2024-11-07] MEDS: Glucagon 1 MG/ML Syringe IV (12:04)
[2024-11-07 12:21] VITALS: BP 133/93; PULSE 79; RESP 18; O2SAT 98
== END | disposition home or self-care (01) ==
PROVIDERS: PCP Family Medicine; Referring Provider Student in an Organized Health Care Education/Training Program; Visit Provider Student in an Organized Health Care Education/Training Program
DX: K52.9 Noninfective gastroenteritis and colitis, unspecified (principal)
CPT/HCPCS: 74183; 96374; A9575; A4216; J1610

== ENCOUNTER 2024-12-23 07:03 | Day surgery (SDC) | payer BC, SELFPAY ==
[2024-12-23] VITALS (8 sets, daily range): BP systolic 116–132; BP diastolic 74–86; PULSE 61–97; RESP 16; TEMP 36.5–36.6; O2SAT 99–100; BMI 28.8
--- NOTE | 2024-12-23 | GASB_PTH ---
PATIENT: DARRICK MONTERROSO LOC: EN U#:[id number] AGE/SX: 39/F ROOM: RE12/23/[address]: Dr. Brandyn Urban DO : 1985 BED: DIS: 12/23/2024 SPEC #: [id number] RECD: 12/23/24 12:58 STATUS: MAURO REYesi #: [id number] ANTONINA: 12/23/24 00:[address]: Brandyn Urban DEPT: SURGICAL PATHOLOGY RECD BY: [place] ENTERED: 12/23/24 12:59 SP TYPE: Gastric Bx OTHR DR: Dr. Heydi Galicia MD Tissues: A - Gastric mucous membrane B - Duodenum, NOS C - Esophageal mucous membrane D - Ileum, NOS E - COLON BIOPSY Procedures: Special Stain Group I Surgery Specimen Level IV Alcian Blue/PAS (control) HEADER OPERATION: Colonoscopy with biopsies, EGD with biopsy PRE-OP DIAGNOSIS: Colitis, GERD, abdominal pain TISSUE SUBMITTED: A- Gastric body biopsy, B- Duodenal biopsy, C- Distal esophagus biopsy,D- Terminal ileum biopsy, E- Random colon biopsy MICROSCOPIC DIAGNOSIS A. Gastric body, biopsy: Mild gastritis. See microscopic description and comment. B. Duodenal biopsy: Fragments of duodenal mucosa, no pathologic diagnosis. C. Distal esophagus, biopsy: Fragments of gastroesophageal mucosa with chronic inflammation. Intestinal metaplasia (goblet cell metaplasia) not identified. See comment. D. Terminal ileum, biopsy: Fragments of small intestinal mucosa, no pathologic diagnosis. See comment. E. Colon, random biopsy: Fragments of colonic mucosa, no pathologic diagnosis. JAH. 12/24/2024 COMMENT A. The results of immunohistochemistry for Helicobacter pylori will be reported separately ([id number]). C. Alcian blue/PAS stain with matched control is used in the evaluation of the specimen. This specimen predominantly consists of gastric mucosa. D. Prominent lymphoid aggregates are noted. MICROSCOPIC DESCRIPTION Slides are reviewed. A. The specimen shows fragments of gastric mucosa with chronic inflammatory cell infiltrates in the lamina propria consisting of lymphocytes and plasma cells, consistent with mild chronic gastritis. Focal mucosa congestion is also noted. GROSS DESCRIPTION A. Received in fixative is one container labeled with the patient's name and designated Gastric body biopsy. The specimen consists of multiple irregular fragments of light peter soft tissue that in aggregate measure 1.7 x 0.2 x 0.2 cm. The specimen is totally submitted in one cassette. B. Received in fixative is one container labeled with the patient's name and designated Duodenal biopsy. The specimen consists of multiple irregular fragments of light peter soft tissue that in aggregate measure 1.3 x 0.2 x 0.1 cm. The specimen is totally submitted in one cassette. C. Received in fixative is one container labeled with the patient's name and designated Distal esophagus biopsy. The specimen consists of multiple irregular fragments of light peter soft tissue that in aggregate measure 1.5 x 0.3 x 0.2 cm. The specimen is totally submitted in one cassette. D. Received in fixative is one container labeled with the patient's name and designated Terminal ileum biopsy. The specimen consists of two irregular fragments of light peter soft tissue that in aggregate measure 0.8 x 0.3 x 0.2 cm. The specimen is totally submitted in one cassette. E. Received in fixative is one container labeled with the patient's name and designated Random colon biopsy. The specimen consists of multiple irregular fragments of light peter soft tissue that in aggregate measure 2.2 x 0.2 x 0.2 cm. The specimen is totally submitted in one cassette. 12/23/2024 TC:3 CPT:[id number]
--- NOTE | 2024-12-23 07:44 | PRE.ANES_ITS ---
ASA Classification* ASA Classification ASA Classification: 2 Assessment & Plan Anesthesia* Anesthesia Assessment Anesthesia Assessment: Discussed sedation and/or anesthesia options, risks, benefits, and alternatives with patient/parents/legal guardian/POA. Questions invited. The patient/parents/legal guardian/POA seems to understand and agrees to proceed with anesthesia plan. Reviewed the physical assessment, medical history, allergy history and patient home medications list prior to surgery/procedure/anesthetic and documented any changes. Performed airway and anesthesia risk assessments. Anesthesia Type Anesthesia Type: MAC History Source History Obtained from:: Patient and Chart Anesthesia Focused Assessment* Temperature: 97.9 F Pulse Rate: 71 Blood Pressure: 132/81 Respiratory Rate: 16 Pulse Ox: 99 Airway Assessment Mouth opens: >3 cm Mallampati Score: II Teeth Condition: Intact Neck Range of motion (ROM): Full ROM Focused Labs Anesthesia Preop lab: CBC WBC 5.8 K/mm3 (4.4-11.0) 09/18/24 10:09/18/24 RBC 3.95 M/mm3 (4.2-5.4) L 09/18/24 10:09/18/24 Hgb 12.1 g/dL (12.0-15.0) 09/18/24 10:09/18/24 Hct 36.6 % (37-47) L 09/18/24 10:25 09/18/24 Plt Count 325 K/mm3 (150-450) 09/18/24 10:25 09/18/24 CHEMISTRY Potassium 3.8 mmol/L (3.5-5.1) 09/18/24 10:25 09/18/24 Sodium 138 mmol/L (136-145) 09/18/24 10:25 09/18/24 BUN 15 mg/dL (7-18) 09/18/24 10:09/18/24 Creatinine 0.96 mg/dL (0.55-1.02) 09/18/24 10:09/18/24 Glucose 89 mg/dL (74-106) 09/18/24 10:09/18/24 TSH 0.472 uIU/mL (0.358-3.740) 09/18/24 10:06/04 COAG Urine Test Negative Negative 12/23/24 07:45 12/23/24 Pre-Assessment Diagnosis/Proposed Procedure Planned Operative Procedure(s): EGD/CSCOPE Anesthesia History 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 When Was Last Pacemaker Check QUESTION #4 FULL TEXT: You/Your Family Experience fever (hyperthermia) with Anesthesia Last Oral Intake Last Oral intake: Last Oral Intake NPO since 02:30 12/23/24 07:26 Meds taken in AM with sips of Yes 12/23/24 07:26 water? Meds patient instructed to take am of surgery PONV PONV - information technology account manager: PONV - information technology account manager Female Yes 12/19/24 12:06 HX of Motion Sickness No 12/19/24 12:06 HX of N/V After Surgery No 12/19/24 12:06 Non-Smoker Yes 12/19/24 12:06 Duration of Surgery greater No 12/19/24 12:06 than 60 minutes Number of Risk Factors 2 12/19/24 12:06 PONV Score Moderate Risk 12/19/24 12:06 Height & Weight Height & Weight: Anesthesia: Height & Weight Height 5 ft 3 in 12/23/24 07:26 Weight: 73.936 kg 12/23/24 07:26 Body Mass Index (BMI) 28.8 12/23/24 07:26 Respiratory Assessment Respiratory Assessment - information technology account manager: Respiratory Tract Infection Hx - information technology account manager Hx Respiratory Tract Infection No 12/19/24 12:06 STOP Sleep Apnea STOP Sleep Apnea - information technology account manager: STOP Sleep Apnea - information technology account manager Hx Hypertension Yes: NO MEDS SINCE 07/202412/19/24 12:06 Hx Sleep Apnea No 12/19/24 12:06 CPAP BIPAP Do you snore loudly (louder No 12/19/24 12:06 than talking or can be heard Do you often feel tired/ Yes 12/19/24 12:06 fatigued/ sleepy during daytime? Has anyone observed you stop No 12/19/24 12:06 breathing during sleep? STOP Results Positive 12/19/24 12:06 QUESTION #5 FULL TEXT : Do you snore loudly (louder than talking or can be heard through closed doors)? 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 Specify any problems Hx of Preganancy in last 3 No 12/19/24 12:06 Months Nurse Filling Out Transfusion DSCHRIBER 12/19/24 12:06 & Questions: Date: 12/19/24 12/19/24 12:06 Time: 12:07 12/19/24 12:06 Patient unable to answer at this time (ie. confused, unrespo /Reproduction History /Reproductive History - information technology account manager: /Reproductive Hx- information technology account manager Hx Now No 12/19/24 12:06 Gestational Age (in weeks): EDC: Hx Hx Para Hx Section SAB No 12/19/24 12:06 PFSH Medical History Depression Alcohol use Low iron Easy bruising Shortness of breath on exertion Non-smoker GERD (gastroesophageal reflux disease) Colitis Anxiety Home Medications ?Medication ?Instructions ?Recorded ?Last Taken ?Type levonorgestrel 1 ea IY DAILY 07/26/1812/22 History bupropion HCl 150 mg 24 hr tablet, 150 mg PO QAM 09/0312/23/24 06:15 History extended release famotidine 40 mg tablet 40 mg PO QHS 09/03/24 History multivitamin (Daily Multi-Vitamin 1 tab PO DAILY 12/1912/20/24 History tablet) Allergy/AdvReac Type Severity Reaction Status Date / Time No Known Allergies Allergy Verified 12/23/24 07:23 Family History Grandmother Thyroid disorder Hypertension Mother Hypertension Father CVA (cerebral vascular accident) Surgical History Hx of hand surgery History of cholecystectomy History of section History of dilatation and curettage Social History Smoking Status: Never smoker alcohol intake: current substance use type: does not use additional social history: pt denies vapes, denies marijuana use, denies edibles, denies aspirin use, uses ibuprofen, denies family history of blood clotting disorder. Review of Systems (Anesthesia) ROS Narrative System reviewed and no additional complaints, except as documented.
[2024-12-23 07:54] LABS: Internal QC Validated? YES +Cl - CLEAR BKGD; Pregnancy, Urine Negative Negative
--- NOTE | 2024-12-23 08:00 | IMM_PTH ---
PATIENT: DARRICK MONTERROSO LOC: EN U#:[id number] AGE/SX: 39/F ROOM: RE12/23/[address]: Dr. Brandyn Urban DO : 1985 BED: DIS: 12/23/2024 SPEC #: [id number] RECD: 12/23/24 13:21 STATUS: MAURO REYesi #: [id number] ANTONINA: 12/23/24 08:[address]: Brandyn Urban DEPT: IMMUNOHISTOCHEMISTRY RECD BY: Edy Zavaleta ENTERED: 12/23/24 13:21 SP TYPE: IMMUNO OTHR DR: Dr. Heydi Galicia MD Tissues: A - Gastric mucous membrane Procedures: H Pylori (initial) PHYSICIAN & INSTITUTION [place] [id number] SPECIMEN INFORMATION: Tissue Source: A- Gastric body biopsy Clinical Info: Colitis, GERD, abdominal pain Specimen Number: [id number] CPT code: 37845 METHODOLOGY: Deparaffinized sections of prefer/formalin-fixed tissue or PAP/DQ stained slides are incubated with monoclonal/polyclonal antibodies/oligonucleotide probes. Localization is made via biotin free immunoperoxidase method. Appropriate controls are performed and reacted as expected. Results on target cell population are indicated in the following table: RESULTS: ANTIBODY / CLONE RESULT Block A H Pylori (polyclonal) negative These tests were developed and their performance characteristics determined by [facility]. They may not have been cleared or approved by the U.S. Food and Drug Administration. The FDA has determined that such clearance or approval is not necessary. The above immunohistochemical/dualISH markers are ordered and reviewed by the Pathologist. INTERPRETATION: A. Gastric body, biopsy: Negative for Helicobacter pylori organisms. 12/24/2024
--- NOTE | 2024-12-23 08:19 | PCM.HP.STD ---
HPI - General General Date of Admission: 12/23/24 Date of Service: 12/23/24 Chief Complaint: colitis and abdominal pain HPI Narrative DARRICK MONTERROSO, is a 39 F who presents for the endoscopic evaluation of colitis and abdominal pain. She originally presented to the office today for establishment with [facility]. Pt has a PMHx of GERD, anxiety, and cholecystitis s/p cholecystectomy. She is here today for evaluation of pain. For a few month she has been having left sided flank pain. During an episode of this pain she checked her BP and it was elevated at 160/110. SHe went to her PCP who put her on a beta chelita. Since this she has not had the pain any longer but has tapered down the beta chelita. She was still concerned about the pain so she had a CT abdomen pelvis which showed colitis in the descending colon and sigmoid. She has always had alternating constipation and diarrhea. She also complains of bloating and eructation. She has never had a colonoscopy or an EGD. [facility] Medical History Depression Alcohol use Low iron Easy bruising Shortness of breath on exertion Non-smoker GERD (gastroesophageal reflux disease) Colitis Anxiety Home Medications ?Medication ?Instructions ?Recorded ?Last Taken ?Type levonorgestrel 1 ea IY DAILY 07/26/18 12/22/24 History bupropion HCl 150 mg 24 hr tablet, 150 mg PO QAM 09/03/24 12/23/24 06:15 History extended release famotidine 40 mg tablet 40 mg PO QHS 09/03/24 12/22/24 History multivitamin (Daily Multi-Vitamin 1 tab PO DAILY 12/19/24 12/20/24 History tablet) Allergy/AdvReac Type Severity Reaction Status Date / Time No Known Allergies Allergy Verified 12/23/24 07:23 Family History Grandmother Thyroid disorder Hypertension Mother Hypertension Father CVA (cerebral vascular accident) Surgical History Hx of hand surgery History of cholecystectomy History of section History of dilatation and curettage Social History Smoking Status: Never smoker alcohol intake: current substance use type: does not use additional social history: pt denies vapes, denies marijuana use, denies edibles, denies aspirin use, uses ibuprofen, denies family history of blood clotting disorder. ROS Constitutional Constitutional: Denies fatigue, fever(s), poor appetite, weight gain or weight loss Gastrointestinal Gastrointestinal: Denies belching, bloating, change in bowel habits, change in stool character, chewing difficulty, coffee ground emesis, constipation, cramping, diarrhea, dyspepsia, dysphagia, early satiety, excessive flatus, fecal incontinence, heartburn, hematemesis, hematochezia, hemorrhoids, loose stools, melena, nausea, odynophagia, rectal bleeding, tenesmus, vomiting or weight changes Vital Signs Vital Signs Vital Signs: 12/23/24 07:25 12/23/24 07:26 12/23/24 07:46 Temperature 97.9 F 97.9 F Temperature Source Temporal Pulse Rate 71 71 Respiratory Rate 16 16 Respiratory Pattern Normal Blood Pressure 132/81 H 132/81 H Blood Pressure Mean 98 Blood Pressure Source Monitor Blood Pressure Position Semi-Fowlers Blood Pressure Location Left Arm Pulse Ox 99 99 Oxygen Delivery Method Room Air Weight Weight: 163 lb Body Mass Index (BMI) 28.8 Physical Exam Const alert, oriented x3, no apparent distress and healthy appearing General Appearance: cooperative GI normal to inspection, nondistended, normoactive bowel sounds, soft to palpation, non-tender and non-distended Percussion: normal to percussion Rectal Exam: deferred Results Lab / Micro Data Labs: Laboratory Results - last 24 hr 12/23/24 07:45: Urine Test Negative Assessment & Plan Assessment/Plan (1) Colitis: (2) GERD (gastroesophageal reflux disease): PLAN: Plan Assessment and Plan (1) Non-specific colitis: (2) Colitis: Status: Acute Plan: This is a 39 yo female here today for evaluation of left flank pain, alternating bowel movements, and CT showing colitis. She has been doing well since she started beta chelita for her BP. She is still concerned about the flank pain. SHe will undergo EGD and colonoscopy due to the hx of colitis and bloating. We will rule out IBD or other autoimmune condition with blood work and stool testing. SHe will try dicyclomine for pain as needed -EGD and colonoscopy -Blood work and stool tests -f/u in 3 months (3) GERD (gastroesophageal reflux disease): Status: Acute Orders: Orders
--- NOTE | 2024-12-23 08:50 | OP.EGD_ITS ---
Patient Name: Kylee Kang Procedure Date: 12/23/2024 6:16 AM Date of : 1985 Age: 39 Procedure: Upper GI endoscopy Indications: Epigastric abdominal pain, Dyspepsia Providers: Brandyn Urban DO Medicines: Monitored Anesthesia Care Patient Profile: This is a 39 year old female. Refer to note in patient chart for documentation of history and physical. Patient has symptoms of acute epigastric abdominal pain and acute dyspepsia. Complications: No immediate complications. Procedure: Pre-Anesthesia Assessment: - Prior to the procedure, a History and Physical was performed, and patient medications and allergies were reviewed. The patient is competent. The risks and benefits of the procedure and the sedation options and risks were discussed with the patient. All questions were answered and informed consent was obtained. Patient identification and proposed procedure were verified by the physician in the pre-procedure area. Mental Status Examination: alert and oriented. Airway Examination: normal oropharyngeal airway and neck mobility. Respiratory Examination: clear to auscultation. CV Examination: normal. Prophylactic Antibiotics: The patient does not require prophylactic antibiotics. Prior Anticoagulants: The patient has taken no anticoagulant or antiplatelet agents. ASA Grade Assessment: II - A patient with mild systemic disease. After reviewing the risks and benefits, the patient was deemed in satisfactory condition to undergo the procedure. The anesthesia plan was to use monitored anesthesia care (MAC). Immediately prior to administration of medications, the patient was re-assessed for adequacy to receive sedatives. The heart rate, respiratory rate, oxygen saturations, blood pressure, adequacy of pulmonary ventilation, and response to care were monitored throughout the procedure. The physical status of the patient was re-assessed after the procedure. After obtaining informed consent, the endoscope was passed under direct vision. Throughout the procedure, the patient's blood pressure, pulse, and oxygen saturations were monitored continuously. The colonoscope was introduced through the mouth, and advanced to the second part of duodenum. The upper GI endoscopy was accomplished without difficulty. The patient tolerated the procedure well. Scope In: 8:27:11 AM Scope Out: 8:32:15 AM Total Procedure Duration Time 0 hours 5 minutes 4 seconds Findings: There were esophageal mucosal changes suspicious for short-segment Mullins's esophagus present in the lower third of the esophagus. The maximum longitudinal extent of these mucosal changes was 2 cm in length. Mucosa was biopsied with a cold forceps for histology in a targeted manner at intervals of 1 cm in the lower third of the esophagus. A total of 2 specimen bottles were sent to pathology. Verification of patient identification for the specimen was done. Estimated blood loss was minimal. Diffuse moderate inflammation characterized by congestion (edema), erosions, erythema and friability was found in the entire examined stomach. Biopsies were taken with a cold forceps for histology. Verification of patient identification for the specimen was done. Estimated blood loss was minimal. Biopsies were taken with a cold forceps for Helicobacter pylori testing. Verification of patient identification for the specimen was done. Estimated blood loss was minimal. Multiple 5 mm hyperplastic polyps with no stigmata of recent bleeding were found in the gastric fundus. Patchy mildly erythematous mucosa without active bleeding and with no stigmata of bleeding was found in the duodenal bulb. Biopsies were taken with a cold forceps for histology. Verification of patient identification for the specimen was done. Estimated blood loss was minimal. 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 Biopsied. - Chronic gastritis. Biopsied. - Multiple gastric polyps. - Erythematous duodenopathy. Biopsied. Recommendation: - Discharge patient to home. - Resume previous diet. - Continue present medications. - Await pathology results. Procedure Code(s): --- Professional --- 83886, Esophagogastroduodenoscopy, flexible, transoral; with biopsy, single or multiple CPT copyright 2021 [employer]. All rights reserved. The codes documented in this report are preliminary and upon certified professional coder review may be revised to meet current compliance requirements. Brandyn Urban DO 12/23/2024 8:49:16 AM This report has been signed electronically. Number of Addenda: 0 Note Initiated On: 12/23/2024 6:16 AM
--- NOTE | 2024-12-23 08:50 | OP.CCLET_ITS ---
12/23/2024 Heydi Galicia [address] [place] [address] Re : Upper GI endoscopy procedure for Kylee Kang Dear Dr. Galicia This procedure was performed on Monday, December 23, 2024. 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 Biopsied. - Chronic gastritis. Biopsied. - Multiple gastric polyps. - Erythematous duodenopathy. Biopsied. Recommendations : - Discharge patient to home. - Resume previous diet. - Continue present medications. - Await pathology results. My findings are described in the full procedure note, which is enclosed. If I can be of further assistance, please feel free to contact me at . Sincerely, Brandyn Urban, 12/23/2024 8:49:16 AM This report has been signed electronically.
--- NOTE | 2024-12-23 08:52 | OP.COLON_ITS ---
Patient Name: Kylee Kang Procedure Date: 12/23/2024 8:32 AM Date of : 1985 Age: 39 Procedure: Colonoscopy Indications: Clinically significant diarrhea of unexplained origin Providers: Brandyn Urban DO Medicines: Monitored Anesthesia Care Patient Profile: This is a 39 year old female. Refer to note in patient chart for documentation of history and physical. Patient has symptoms of acute epigastric abdominal pain and acute dyspepsia. Last Colonoscopy: none. The patient's first colonoscopy is today. Complications: No immediate complications. Procedure: Pre-Anesthesia Assessment: - Prior to the procedure, a History and Physical was performed, and patient medications and allergies were reviewed. The patient is competent. The risks and benefits of the procedure and the sedation options and risks were discussed with the patient. All questions were answered and informed consent was obtained. Patient identification and proposed procedure were verified by the physician in the pre-procedure area. Mental Status Examination: alert and oriented. Airway Examination: normal oropharyngeal airway and neck mobility. Respiratory Examination: clear to auscultation. CV Examination: normal. Prophylactic Antibiotics: The patient does not require prophylactic antibiotics. Prior Anticoagulants: The patient has taken no anticoagulant or antiplatelet agents. ASA Grade Assessment: II - A patient with mild systemic disease. After reviewing the risks and benefits, the patient was deemed in satisfactory condition to undergo the procedure. The anesthesia plan was to use monitored anesthesia care (MAC). Immediately prior to administration of medications, the patient was re-assessed for adequacy to receive sedatives. The heart rate, respiratory rate, oxygen saturations, blood pressure, adequacy of pulmonary ventilation, and response to care were monitored throughout the procedure. The physical status of the patient was re-assessed after the procedure. After I obtained informed consent, the scope was passed under direct vision. Throughout the procedure, the patient's blood pressure, pulse, and oxygen saturations were monitored continuously. The colonoscope was introduced through the anus and advanced to the terminal ileum. The colonoscopy was performed without difficulty. The patient tolerated the procedure well. The quality of the bowel preparation was adequate. The terminal ileum, ileocecal valve, appendiceal orifice, and rectum were photographed. Scope In: 8:34:00 AM Scope Withdrawal Time 0 hours 7 minutes 25 seconds Scope Out: 8:43:18 AM Total Procedure Duration Time 0 hours 9 minutes 18 seconds Findings: The perianal and digital rectal examinations were normal. An area of mildly congested mucosa was found in the recto-sigmoid colon, in the sigmoid colon and in the ascending colon. Biopsies were taken with a cold forceps for histology. Verification of patient identification for the specimen was done. Estimated blood loss was minimal. A patchy area of the terminal ileum was congested. Biopsies were taken with a cold forceps for histology. Verification of patient identification for the specimen was done. Estimated blood loss was minimal. Impression: - Congested mucosa in the recto-sigmoid colon, in the sigmoid colon and in the ascending colon. Biopsied. - Congested mucosa in the terminal ileum. Biopsied. Recommendation: - Discharge patient to home. - Resume previous diet. - Continue present medications. - Await pathology results. - Repeat colonoscopy in 10 years for screening purposes. Procedure Code(s): --- Professional --- 04629, Colonoscopy, flexible; with biopsy, single or multiple CPT copyright 2021 [employer]. All rights reserved. The codes documented in this report are preliminary and upon swat team member review may be revised to meet current compliance requirements. Brandyn Urban DO 12/23/2024 8:51:19 AM This report has been signed electronically. Number of Addenda: 0 Note Initiated On: 12/23/2024 8:32 AM
--- NOTE | 2024-12-23 08:52 | OP.CCLET_ITS ---
12/23/2024 Heydi Galicia [place] [id number] [place] [address] Re : Colonoscopy procedure for Kylee Kang Dear Dr. Galicia This procedure was performed on Monday, December 23, 2024. My impressions and recommendations are as follows: Impressions : - Congested mucosa in the recto-sigmoid colon, in the sigmoid colon and in the ascending colon. Biopsied. - Congested mucosa in the terminal ileum. Biopsied. Recommendations : - Discharge patient to home. - Resume previous diet. - Continue present medications. - Await pathology results. - Repeat colonoscopy in 10 years for screening purposes. My findings are described in the full procedure note, which is enclosed. If I can be of further assistance, please feel free to contact me at . Sincerely, Brandyn Urban, 12/23/2024 8:51:19 AM This report has been signed electronically.
--- NOTE | 2024-12-23 08:55 | PCM.POST.ANE ---
Anesthesia: Postop Eval I Current Vital Signs Temperature: 97.7 F Pulse Rate: 72 Blood Pressure: 132/80 Respiratory Rate: 16 Pulse Ox: 100 Oxygen Delivery Method: Room Air Assessment Airway patent: Yes Spontaneous unlabored respirations: Yes Mental status: Awake and Calm nausea: No Vomiting: No Anesthesia Complication: No Fluid Hydration Crystalloid volume administer (ml): 55 Total IV fluid infused: 55 Progress Note Anesthesia document: Postop Eval 1 completed: Yes
--- NOTE | 2024-12-23 11:10 | PCM.POSTANE2 ---
Anesthesia Postop Eval I Sum Postop Eval Completion status Anesthesia document: Postop Eval 1 completed: Yes Anesthesia Postop Eval I Summary Anesthesia Postop Eval I Summary: Anesthesia Postop Eval I: Assessment Summary Airway patent Yes 12/23/24 08:56 [email or web address] Spontaneous unlabored Yes 12/23/24 08:56 [email or web address] respirations Mental status Awake,Calm 12/23/24 08:56 [email or web address] nausea No 12/23/24 08:56 [email or web address] Vomiting No 12/23/24 08:56 [email or web address] Anesthesia Postop Eval I: Fluid Summary Crystalloid volume administer 55 12/23/24 08:56 [email or web address] (ml) Colloids volume administered ( ml) Blood Product volume administered (ml) Total IV fluid infused 55 12/23/24 08:56 [email or web address] Anesthesia Postop Eval I: Summary Notes Anesthesia Complication No 12/23/24 08:56 [email or web address] Anesthesia Complication Comment: Post-operative progress note Anesthesia: Postop Eval II Evaluation Mental status: Awake and Calm Pain Level: 0 nausea: No Vomiting: No Complications Anesthesia Complication: No
== END 2024-12-23 09:28 | disposition home or self-care (01) ==
LOC: EN 07:04 → AC 07:06
PROVIDERS: Anesthesiology; PCP Family Medicine; Referring Provider Family Medicine; Visit Provider Internal Medicine Gastroenterology
PROC: 0DJD8ZZ Inspection of Lower Intestinal Tract, Via Natural or Artificial Opening Endoscopic (ICD-10-PCS; CPT 45378; principal; 2024-12-23 07:55)
DX: K29.50 Unspecified chronic gastritis without bleeding (principal); K52.9 Noninfective gastroenteritis and colitis, unspecified; K21.9 Gastro-esophageal reflux disease without esophagitis; K63.89 Other specified diseases of intestine; F41.9 Anxiety disorder, unspecified; K31.7 Polyp of stomach and duodenum; Z90.49 Acquired absence of other specified parts of digestive tract
CPT/HCPCS: 45380; 43239; 81025; 88305; 88312; 88342; A4216; J2405